=== PATIENT | female | born 1980 | race Caucasian/White ===

== ENCOUNTER 2016-12-02 18:43 | Emergency (ER) | payer OTHER ==
[~2016-12-02] VITALS: Ht 154.9 cm; Wt 96.6 kg
[~2016-12-02 18:43] MED LIST: ALBUTEROL0.5 % IN; ASPIRIN ADULT L81 M2; ASPIRIN ADULT L81 M2 PO; ATORVASTATIN CA20 MG PO; BACTRIM DS1 TAB PO; CIPROFLOXACN500 MG PO; CLEOCIN300 MG PO; CLINDAMYCIN300 M1 PO; CLOTRIMAZOLE1 % VA; CORTISPORIN OTI10 M2 AS; DOXYCYC MONO100 M2 PO; DOXYCYCL HYC100 MG PO; FLEXERIL5 MG PO; GLUCOMETER; HYDROCO/APAP1 TA9 PO; LEVEMIR FL100 UNIT/M SC; LIDOCAINE VISC20 ML EX; LISINOPRIL10 MG PO; LORAZEPAM0.5 MG PO; LOTRISONE CREAM15 G1 TOP; MEDDOSEPAK PO; METFORMIN HCL1000 MG PO; METFORMIN500 MG PO; ONDANSETRON4 MG PO; PERCOCET 10/31 COMBO PO; PERCOCET1 TA2 PO; PREDNISONE10 MG PO; PREVACID30 M2 PO; PRILOSEC40 MG PO; PROAIR HFA IN; PROZAC20 MG PO; PYRIDIUM200 MG PO; QVAR80 MCG IN; RISPERDAL1 M1 PO; RISPERIDONE0.5 MG PO; RISPERIDONE2 MG PO; SYMBICORT1 AE1 IN; TOPIRAMATE100 MG PO; ULTRAM50 M1 PO; ULTRAM50 MG PO; VANCOMYCIN HCL1 GM IV; WARFARIN SODIUM5 MG PO; WELLBUTRIN SR150 MG PO; [UNRECOGNIZED DRUG - SUPPLY]
[2016-12-02 20:06] LABS: HEMATOCRIT 52.6 % (37.0-47.0); HEMOGLOBIN 17.7 g/dl (12.0-16.0); IMMATURE GRANULOCYTES 0.4 % (0.0-1.0); MEAN CELL VOLUME 85.1 fL CALC (80.0-100.0); MEAN CORPUSCULAR HGB 28.6 pG CALC (26.0-32.0); MEAN CORPUSCULAR HGB CONC 33.7 g/L CALC (32.0-36.0); NEUT# 6.12 thou/uL (2.00-7.15); RED BLOOD COUNT 6.18 mill/uL (4.20-5.60); RED CELL DISTRI WIDTH 13.2 % (11.5-15.5)
[2016-12-02 21:41] LABS: ALBUMIN 4.2 g/dL (3.2-5.0); ALKALINE PHOSPHATASE 98 u/l (38-126); ANION GAP 16 (6-22 (CALC)); BILIRUBIN, TOTAL 0.9 mg/dL (0.0-1.4); BUN 10 mg/dL (7-17); BUN/CREATININE RATIO 21 (12-20 (CALC)); CALCIUM 9.6 mg/dL (8.4-10.2); CARBON DIOXIDE 25 mmol/l (22-30); CHLORIDE 103 mmol/l (95-108); CREATININE 0.5 mg/dL (0.5-1.0); GFR > 60 ML/MIN (>=60 (CALC)); GFR FOR AFR.AMER. > 60 ML/MIN (>=60 (CALC)); GLUCOSE 193 mg/dL (65-105); SGOT/AST 21 u/l (14-36); SGPT/ALT 35 u/l (9-52); SODIUM 140 mmol/l (137-146); TOTAL PROTEIN 7.5 g/dL (6.3-8.2)
[2016-12-02 22:30] VITALS: BP 115/72
== END 2016-12-02 22:30 | disposition home or self-care (01) | DRG 556 ==
LOC: ED 18:43
PROVIDERS: Emergency Medicine
DX: M79.601 Pain in right arm (principal); R73.9 Hyperglycemia, unspecified; Z86.718 Personal history of other venous thrombosis and embolism; Z79.01 Long term (current) use of anticoagulants

== ENCOUNTER 2016-12-21 04:15 | Inpatient (IN) | payer OTHER ==
[~2016-12-21] VITALS: Ht 154.9 cm; Wt 99.0 kg
--- NOTE | 2016-12-21 04:25 | NUR ---
RECEIVED PT VIA EMS. C/O SOB, CHEST PAIN AND ELEVATED BLOOD SUGAR. PT STATED SOB STARTED WITH LOSS OF POWER, UNABLE TO TAKE HOME NEB TX. PT RELATED CONDITION EXACERBATED WITH THE HEAT.
[2016-12-21 06:22] LABS: URINE BILIRUBIN - DIPSTICK NEGATIVE (NEGATIVE); URINE BLOOD DIPSTICK NEGATIVE (NEGATIVE); URINE CLARITY CLEAR; URINE COLOR YELLOW; URINE GLUCOSE - DIPSTICK >=1000 mg/dL (NEGATIVE); URINE KETONE NEGATIVE (NEGATIVE); URINE NITRITE - DIPSTICK NEGATIVE (Negative); URINE PROTEIN - DIPSTICK NEGATIVE (NEG-TRACE); URINE UROBILINOGEN - DIPSTICK 0.2 E.U./dL (0.2)
--- NOTE | 2016-12-21 06:24 | NUR ---
RESP AT BEDSIDE FOR RAUDEL FRIEDMAN.
--- NOTE | 2016-12-21 06:25 | NUR ---
BREATHING TREATMENT GIVEN. BREATHING TECH FOR GOOD DEPOSITION TO THE LUNGS.
[2016-12-21 06:39] LABS: HEMATOCRIT 46.1 % (37.0-47.0); HEMOGLOBIN 15.4 g/dl (12.0-16.0); IMMATURE GRANULOCYTES 0.2 % (0.0-1.0); MEAN CELL VOLUME 86.2 fL CALC (80.0-100.0); MEAN CORPUSCULAR HGB 28.8 pG CALC (26.0-32.0); MEAN CORPUSCULAR HGB CONC 33.4 g/L CALC (32.0-36.0); NEUT# 6.72 thou/uL (2.00-7.15); RED BLOOD COUNT 5.35 mill/uL (4.20-5.60)
[2016-12-21 06:46] LABS: URINE LEUK ESTERASE SMALL (NEGATIVE)
--- NOTE | 2016-12-21 06:48 | NUR ---
REPORT TO LULU GUTIERREZ
[2016-12-21 06:51] LABS: URINE BACTERIA FEW hpf; URINE SQUAMOUS EPITHELIAL CELL FEW EPI/hpf (0-FEW); URINE TRICHOMONAS FEW hpf
[2016-12-21 06:55] LABS: ACT PARTIAL THROMBO TIME 27.5 SECONDS (20.0-32.5); INTERNATIONAL NORMALIZED RATIO 0.9 RATIO (0.7-1.3); PROTHROMBIN TIME 9.6 SECONDS (9.0-12.5)
[2016-12-21 06:56] LABS: ALKALINE PHOSPHATASE 118 u/l (38-126); ANION GAP 17 (6-22 (CALC)); BILIRUBIN, TOTAL 0.5 mg/dL (0.0-1.4); BUN 11 mg/dL (7-17); BUN/CREATININE RATIO 21 (12-20 (CALC)); CARBON DIOXIDE 23 mmol/l (22-30); CHLORIDE 101 mmol/l (95-108); CREATININE 0.5 mg/dL (0.5-1.0); GFR > 60 ML/MIN (>=60 (CALC)); GFR FOR AFR.AMER. > 60 ML/MIN (>=60 (CALC)); GLUCOSE 398 mg/dL (65-105); POTASSIUM 4.9 mmol/l (3.5-5.1); SGOT/AST 18 u/l (14-36); SGPT/ALT 33 u/l (9-52); SODIUM 136 mmol/l (137-146); TOTAL PROTEIN 7.3 g/dL (6.3-8.2)
[2016-12-21 07:07] LABS: MYOGLOBIN 15 ng/mL (0 - 62)
--- NOTE | 2016-12-21 07:25 | NUR ---
SBAR PRINTED TO FLOOR
--- NOTE | 2016-12-21 07:25 | NUR ---
PATIENT RESTING ON STRETCHER, RALES AUSCULTATED ON RIGHT LOBE AND LEFT LOWER LOBE. PATIENT REPORTS PAIN RATING 10/10. MD AWARE, AWAITING ORDERS.
--- NOTE | 2016-12-21 08:20 | NUR ---
REPORT GIVEN TO MATT DHALIWAL.
--- NOTE | 2016-12-21 08:25 | NUR ---
PATIENT REPORTS PAIN 7/10 AT THIS TIME.
--- NOTE | 2016-12-21 08:30 | NUR ---
PT TO ROOM VIA STRETCHER ACCOMPANIED BY STAFF; AMBULATORY TO BED WITH STAND BY ASSIST; O2 2L VIA NC; TELE MONITOR IN PLACE; PT ORIENTED TO ROOM AND CALL SYSTEM; WILL CONTINUE TO MONITOR.
[2016-12-21 08:40] VITALS: BP 113/73
--- NOTE | 2016-12-21 08:40 | NUR ---
PATIENT TRANSPORTED TO [facility] VIA STRETCHER WITH TELE MONITOR IN PLACE.
[2016-12-21] MEDS ORDERED: METFORMIN500 MG PO (10:45)
[2016-12-21 11:15] LABS: CHOLESTEROL HDL RATIO 6.3 (<4.4 (CALC))
--- NOTE | 2016-12-21 11:15 | NUR ---
PT MEDICATED FOR C/O MIDSTERNAL CHEST PAIN AND BACK PAIN 01/18; CALL LUJAN WITHIN REACH; WILL CONTINUE TO MONITOR.
[2016-12-21 15:44] VITALS: BP 122/69
--- NOTE | 2016-12-21 16:23 | NUR ---
Initiated Chest percussions with G5 percussor times 6 mins. Non-productive cough.
--- NOTE | 2016-12-21 16:30 | NUR ---
PT VISITING WITH FAMILY; NO COMPLAINTS VOICED; CALL LUJAN WITHIN REACH; WILL CONTINUE TO MONITOR.
--- NOTE | 2016-12-21 19:00 | NUR ---
BEDSIDE REPORT RECEIVED FROM MATT DHALIWAL. PT SITTING UP IN BED. C/O MIDSTERNAL PAIN AND REQUESTS HER ANAGEISC. RESPIRATIONS EVEN AND UNLABORED ON 2L OF OXYGEN VIA NC. PLAN OF CARE DISCUSSED. PT ENCOURAGED TO VERBALIZE CONCERNS. STATES UNDERSTANDING. SAFETY MEASURES IN PLACE. CALL LIGHT WITHIN REACH.
[2016-12-21 19:20] VITALS: BP 114/68
--- NOTE | 2016-12-22 | NUR ---
PT ASLEEP AT THIS TIME. NO SIGNS OF DISTRESS NOTED. RESPIRATIONS EVEN AND UNLABORED ON 2L OF OXYGEN. UP AD TERENCE TO BATHROOM. NEW IV SITE TO RIGHT WRIST APPEARS HEALTHY. PT USES CALL LIGHT PRN. SAFETY MEASURES IN PLACE. CALL LIGHT WITHIN REACH.
[2016-12-22 00:50] VITALS: BP 103/58
[2016-12-22 04:35] VITALS: BP 93/64
--- NOTE | 2016-12-22 05:28 | NUR ---
PT ASLEEP AT THIS TIME. NO SIGNS OF DISTRESS NOTED. RESPIRATIONS EVEN AND UNLABORED. NO CHANGES IN ASSESSMENT. CONDITION IS STABLE. PT REMOVED OXYGEN DURING THE NIGHT; REAPPLIED. SAFETY MEASURES IN PLACE. CALL LIGHT WITHIN REACH.
[2016-12-22 06:05] LABS: HEMATOCRIT 43.6 % (37.0-47.0); HEMOGLOBIN 14.4 g/dl (12.0-16.0); IMMATURE GRANULOCYTES 0.5 % (0.0-1.0); MEAN CELL VOLUME 86.3 fL CALC (80.0-100.0); MEAN CORPUSCULAR HGB 28.5 pG CALC (26.0-32.0); NEUT# 8.78 thou/uL (2.00-7.15); RED BLOOD COUNT 5.05 mill/uL (4.20-5.60)
[2016-12-22 06:07] LABS: ANION GAP 17 (6-22 (CALC)); BUN 15 mg/dL (7-17); BUN/CREATININE RATIO 21 (12-20 (CALC)); CALCIUM 10.2 mg/dL (8.4-10.2); CARBON DIOXIDE 19 mmol/l (22-30); CHLORIDE 104 mmol/l (95-108); CREATININE 0.7 mg/dL (0.5-1.0); GFR > 60 ML/MIN (>=60 (CALC)); GFR FOR AFR.AMER. > 60 ML/MIN (>=60 (CALC)); GLUCOSE 447 mg/dL (65-105); MAGNESIUM 1.7 mg/dL (1.6-2.3); SODIUM 135 mmol/l (137-146)
[2016-12-22 08:29] VITALS: BP 95/44
[2016-12-22 11:18] VITALS: BP 122/79
[2016-12-22 15:47] VITALS: BP 102/57
[2016-12-22 19:38] VITALS: BP 108/63
--- NOTE | 2016-12-22 20:15 | NUR ---
PT. SITTING UP IN BED WITH NO DISTRESS NOTED. ASSESSMENT COMPLETED;PT. ON RA. PT. REPORTS SOME DECREASE IN CHEST MUSCULAR PAIN. UPDATED ON POC. ENCOURAGED TO CALL FOR ANY NEEDS. CALL LIGHT IS IN REACH.
--- NOTE | 2016-12-22 21:55 | NUR ---
NEW IV SITE STARTED TO LFA X1 ATTEMPT. REMOVED IV SITE TO LW PER PTS REQUEST, CATH TIP IS INTACT. CALL LIGHT IS IN REACH. WILL CONTINUE TO MONITOR.
--- NOTE | 2016-12-23 | NUR ---
PT. RESTING IN BED WITH EYES CLOSED, NO DISTRESS NOTED. RESP EVEN AND UNLABORED. ENCOURAGED TO CALL FOR ANY NEEDS. CALL LIGHT IS IN REACH.
[2016-12-23 00:30] VITALS: BP 110/61
--- NOTE | 2016-12-23 03:01 | NUR ---
PT. RESTING IN BED WITH EYES CLOSED, NO DISTRESS NOTED. RESP EVEN AND UNLABORED. CALL LIGHT IS IN REACH.
--- NOTE | 2016-12-23 03:03 | NUR ---
PT. IS RESTING IN BED ON RIGHT SIDE WITH EYES CLOSED; NO DISTRESS NOTED. CPAP IN PLACE. CALL LIGHT IS IN REACH.
[2016-12-23 03:40] VITALS: BP 115/68
[2016-12-23 05:08] LABS: ANION GAP 16 (6-22 (CALC)); BUN 23 mg/dL (7-17); BUN/CREATININE RATIO 37 (12-20 (CALC)); CALCIUM 10.1 mg/dL (8.4-10.2); CARBON DIOXIDE 21 mmol/l (22-30); CHLORIDE 103 mmol/l (95-108); CREATININE 0.6 mg/dL (0.5-1.0); GFR > 60 ML/MIN (>=60 (CALC)); GFR FOR AFR.AMER. > 60 ML/MIN (>=60 (CALC)); GLUCOSE 322 mg/dL (65-105); POTASSIUM 4.7 mmol/l (3.5-5.1); SODIUM 135 mmol/l (137-146)
[2016-12-23 05:23] LABS: HEMATOCRIT 42.4 % (37.0-47.0); IMMATURE GRANULOCYTES 0.7 % (0.0-1.0); MEAN CELL VOLUME 85.7 fL CALC (80.0-100.0); MEAN CORPUSCULAR HGB 28.3 pG CALC (26.0-32.0); NEUT# 11.96 thou/uL (2.00-7.15); RED BLOOD COUNT 4.95 mill/uL (4.20-5.60); RED CELL DISTRI WIDTH 13.3 % (11.5-15.5)
--- NOTE | 2016-12-23 05:30 | NUR ---
PT. SITTING UP IN BED WITH NO RESP DISTRESS NOTED. PT. C/O CHEST (MUSCULAR)PAIN 10/10, MEDICATED WITH ORDERED PRN PERCOCET, WILL REASSESS. PO FLUIDS GIVEN. ENCOURAGED TO CALL FOR ANY NEEDS. CALL LIGHT IS IN REACH.
[2016-12-23 08:00] VITALS: BP 111/65
--- NOTE | 2016-12-23 08:00 | NUR ---
PT.SITTING UPRIGHT IN BED EATING BREAKFAST, C/O LACK OF FOOD, SHE HAS SCRAMBLED EGGS, MUFFIN, JUICE AND MILK (CALLED KITCHEN FOR GRITS); PT.V/S ASSESSED, DENIES ANY DISCOMFORT AT THIS TIME
[2016-12-23 10:55] VITALS: BP 124/75
--- NOTE | 2016-12-23 11:52 | NUR ---
PT.UPRIGHT IN RECLINER, HAS BEEN THERE FOR 1 HOUR. MEDICATED ORDERED, STATES THAT SHE NEEDS TO BE DISCHARGED SOON TO GO GET HER DAUGHTER
[2016-12-23] MEDS ORDERED: METFORMIN1000 MG PO (12:05)
[2016-12-23] MEDS ORDERED: LIPITOR20 MG PO (12:05)
[2016-12-23] MEDS ORDERED: PREDNISONE10 MG PO (12:05)
[2016-12-23] MEDS ORDERED: DOXYCYCL HYC100 MG PO (12:05)
[2016-12-23] MEDS ORDERED: LORTAB 7.5-3251 TAB PO (12:06)
[2016-12-23] MEDS ORDERED: NOVOLOG100 UNIT/M SC (12:13)
--- NOTE | 2016-12-23 13:21 | NUR ---
IV REMOVED AND JEWELRY MOLD MAKER REMOVED, ED NOTIFIED, PT.DISCHARGED AND OFF THE FLOOR AT THIS TIME IN GOOD CONDITION, AMBULATED SELF WITH FAMILY PICKING HER UP DOWNSTAIRS.
== END 2016-12-23 13:20 | disposition home or self-care (01) | DRG 190 ==
LOC: ED 04:15 → ED-I 07:03 → ED 07:17 → MS2 07:18
PROVIDERS: Emergency Medicine; Nurse Practitioner Family; ADMIT Internal Medicine; ATTEND Internal Medicine
DX: J44.1 Chronic obstructive pulmonary disease with (acute) exacerbation (principal); J96.22 Acute and chronic respiratory failure with hypercapnia; J96.21 Acute and chronic respiratory failure with hypoxia; E11.22 Type 2 diabetes mellitus with diabetic chronic kidney disease; N39.0 Urinary tract infection, site not specified; Z68.41 Body mass index [BMI] 40.0-44.9, adult; E11.65 Type 2 diabetes mellitus with hyperglycemia; I12.9 Hypertensive chronic kidney disease with stage 1 through stage 4 chronic kidney disease, or unspecified chronic kidney disease; A59.00 Urogenital trichomoniasis, unspecified; N18.9 Chronic kidney disease, unspecified; E78.5 Hyperlipidemia, unspecified; F41.9 Anxiety disorder, unspecified; F43.10 Post-traumatic stress disorder, unspecified; F31.9 Bipolar disorder, unspecified; F44.81 Dissociative identity disorder; E66.01 Morbid (severe) obesity due to excess calories; E11.69 Type 2 diabetes mellitus with other specified complication; Z88.0 Allergy status to penicillin; Z86.718 Personal history of other venous thrombosis and embolism; Z79.84 Long term (current) use of oral hypoglycemic drugs; Z59.1 Inadequate housing; Z79.4 Long term (current) use of insulin; Z87.891 Personal history of nicotine dependence; Z22.322 Carrier or suspected carrier of Methicillin resistant Staphylococcus aureus
CPT/HCPCS: J1956

== ENCOUNTER 2017-08-16 19:46 | Emergency (ER) | payer OTHER ==
[~2017-08-16] VITALS: Ht 154.9 cm; Wt 87.2 kg
[~2017-08-16 19:46] MED LIST changes: +LIPITOR20 MG PO; +LORTAB 7.5-3251 TAB PO; +METFORMIN1000 MG PO; +NOVOLOG100 UNIT/M SC
[2017-08-16] MEDS ORDERED: ULTRAM50 M1 PO (20:50)
[2017-08-16] MEDS ORDERED: NAPROSYN500 MG PO (21:01)
[2017-08-16 21:11] VITALS: BP 124/66
== END 2017-08-16 21:11 | disposition home or self-care (01) | DRG 552 ==
LOC: ED 19:46
DX: S13.9XXA Sprain of joints and ligaments of unspecified parts of neck, initial encounter (principal); V47.5XXA Car driver injured in collision with fixed or stationary object in traffic accident, initial encounter

== ENCOUNTER 2017-09-15 08:53 | Emergency (ER) | payer OTHER ==
[~2017-09-15] VITALS: Ht 154.9 cm; Wt 100.0 kg
[~2017-09-15 08:53] MED LIST changes: +NAPROSYN500 MG PO
[2017-09-15 09:25] LABS: HEMATOCRIT 46.8 % (37.0-47.0); HEMOGLOBIN 15.4 g/dl (12.0-16.0); IMMATURE GRANULOCYTES 0.4 % (0.0-1.0); MEAN CELL VOLUME 85.9 fL CALC (80.0-100.0); MEAN CORPUSCULAR HGB 28.3 pG CALC (26.0-32.0); MEAN CORPUSCULAR HGB CONC 32.9 g/L CALC (32.0-36.0); NEUT# 6.07 thou/uL (2.00-7.15); RED BLOOD COUNT 5.45 mill/uL (4.20-5.60); RED CELL DISTRI WIDTH 12.7 % (11.5-15.5)
[2017-09-15 09:32] LABS: ALBUMIN 3.7 g/dL (3.2-5.0); ALKALINE PHOSPHATASE 125 u/l (38-126); ANION GAP 18 (6-22 (CALC)); BILIRUBIN, TOTAL 0.3 mg/dL (0.0-1.4); BUN 11 mg/dL (7-17); BUN/CREATININE RATIO 28 (12-20 (CALC)); CARBON DIOXIDE 25 mmol/l (22-30); CHLORIDE 100 mmol/l (95-108); CREATININE 0.4 mg/dL (0.5-1.0); GFR > 60 ML/MIN (>=60 (CALC)); GFR FOR AFR.AMER. > 60 ML/MIN (>=60 (CALC)); LIPASE 263 u/l (23-300); POTASSIUM 4.6 mmol/l (3.5-5.1); SGOT/AST 8 u/l (14-36); SGPT/ALT 27 u/l (9-52); SODIUM 138 mmol/l (137-146); TOTAL PROTEIN 7.1 g/dL (6.3-8.2)
[2017-09-15] MEDS ORDERED: HYDROCO/APAP1 TA9 PO (10:30)
[2017-09-15] MEDS ORDERED: ONDANSETRON4 MG PO (10:30)
[2017-09-15 10:39] VITALS: BP 118/59
== END 2017-09-15 10:52 | disposition home or self-care (01) | DRG 563 ==
LOC: ED 08:53
PROVIDERS: Family Medicine
DX: S39.012A Strain of muscle, fascia and tendon of lower back, initial encounter (principal); M25.551 Pain in right hip; S76.011A Strain of muscle, fascia and tendon of right hip, initial encounter; S86.911A Strain of unspecified muscle(s) and tendon(s) at lower leg level, right leg, initial encounter; M25.561 Pain in right knee; M54.5 Low back pain; V43.52XA Car driver injured in collision with other type car in traffic accident, initial encounter; Y92.414 Local residential or business street as the place of occurrence of the external cause; Y99.0 Civilian activity done for income or pay

== ENCOUNTER 2017-10-15 22:47 | Emergency (ER) | payer OTHER ==
[~2017-10-15] VITALS: Ht 154.9 cm; Wt 77.2 kg
[2017-10-15 23:49] LABS: HEMATOCRIT 48.4 % (37.0-47.0); HEMOGLOBIN 16.2 g/dl (12.0-16.0); IMMATURE GRANULOCYTES 0.3 % (0.0-1.0); MEAN CELL VOLUME 86.1 fL CALC (80.0-100.0); MEAN CORPUSCULAR HGB 28.8 pG CALC (26.0-32.0); MEAN CORPUSCULAR HGB CONC 33.5 g/L CALC (32.0-36.0); NEUT# 6.07 thou/uL (2.00-7.15); RED BLOOD COUNT 5.62 mill/uL (4.20-5.60); RED CELL DISTRI WIDTH 12.4 % (11.5-15.5)
[2017-10-15 23:50] LABS: URINE BILIRUBIN - DIPSTICK NEGATIVE (NEGATIVE); URINE BLOOD DIPSTICK NEGATIVE (NEGATIVE); URINE COLOR YELLOW; URINE GLUCOSE - DIPSTICK >=1000 mg/dL (NEGATIVE); URINE KETONE NEGATIVE (NEGATIVE); URINE LEUK ESTERASE NEGATIVE (NEGATIVE); URINE PROTEIN - DIPSTICK NEGATIVE (NEG-TRACE); URINE SPECIFIC GRAVITY <=1.005; URINE UROBILINOGEN - DIPSTICK 0.2 E.U./dL (0.2)
[2017-10-15 23:52] LABS: URINE CLARITY SL CLOUDY; URINE NITRITE - DIPSTICK POSITIVE (Negative)
[2017-10-15 23:57] LABS: BARBITURATES NEGATIVE (NEGATIVE); COCAINE NEGATIVE (NEGATIVE); METHADONE NEGATIVE (NEGATIVE); OXCYCODONE NEGATIVE (NEGATIVE); TETRAHYDROCANNABIONOL NEGATIVE (NEGATIVE); TRICYLIC ANTIDEPRESSANTS NEGATIVE (NEGATIVE); URINE BACTERIA MODERATE hpf; URINE RBC 0-2 RBC/hpf (0-5); URINE SQUAMOUS EPITHELIAL CELL MODERATE EPI/hpf (0-FEW)
[2017-10-16 00:06] LABS: ALKALINE PHOSPHATASE 124 u/l (38-126); ANION GAP 16 (6-22 (CALC)); BILIRUBIN, TOTAL 0.4 mg/dL (0.0-1.4); BUN 11 mg/dL (7-17); BUN/CREATININE RATIO 25 (12-20 (CALC)); CARBON DIOXIDE 28 mmol/l (22-30); CHLORIDE 98 mmol/l (95-108); CREATININE 0.5 mg/dL (0.5-1.0); GFR > 60 ML/MIN (>=60 (CALC)); GFR FOR AFR.AMER. > 60 ML/MIN (>=60 (CALC)); POTASSIUM 4.2 mmol/l (3.5-5.1); SGPT/ALT 22 u/l (9-52); SODIUM 138 mmol/l (137-146); TOTAL PROTEIN 7.7 g/dL (6.3-8.2)
[2017-10-16 00:12] LABS: SGOT/AST 18 u/l (14-36)
[2017-10-16 00:13] LABS: ETHYL ALCOHOL < 10 mg/dl (0-30)
--- NOTE | 2017-10-16 00:19 | NUR ---
BREATHING TREATMENT GIVEN USING MOUTH PEICE. BREATHING TECH. FOR GOOD DEPOSITION TO THE LUNGS.
[2017-10-16 00:37] LABS: TSH, 3RD GENERATION 1.76 uIU/mL (0.47 - 4.68)
[2017-10-16] MEDS ORDERED: LEVEMIR100 UNIT/M SC (02:01)
[2017-10-16] MEDS ORDERED: LOTRISONE CREAM15 GM EX (02:01)
[2017-10-16 02:31] VITALS: BP 119/84
== END 2017-10-16 02:31 | disposition home or self-care (01) ==
LOC: ED 22:47
PROVIDERS: Family Medicine
DX: E11.65 Type 2 diabetes mellitus with hyperglycemia (principal); I10 Essential (primary) hypertension; F17.210 Nicotine dependence, cigarettes, uncomplicated; L30.4 Erythema intertrigo; Z79.4 Long term (current) use of insulin; Z91.14 Patient's other noncompliance with medication regimen

== ENCOUNTER 2017-11-14 21:57 | Emergency (ER) | payer OTHER ==
[~2017-11-14] VITALS: Ht 154.9 cm; Wt 95.0 kg
[~2017-11-14 21:57] MED LIST changes: +LEVEMIR100 UNIT/M SC; +LOTRISONE CREAM15 GM EX
[2017-11-14 23:19] LABS: HEMATOCRIT 44.8 % (37.0-47.0); HEMOGLOBIN 15.3 g/dl (12.0-16.0); IMMATURE GRANULOCYTES 0.3 % (0.0-5.0); MEAN CELL VOLUME 84.1 fL CALC (80.0-100.0); MEAN CORPUSCULAR HGB 28.7 pG CALC (26.0-32.0); MEAN CORPUSCULAR HGB CONC 34.2 g/L CALC (32.0-36.0); NEUT# 8.99 thou/uL (2.00-7.15); RED BLOOD COUNT 5.33 mill/uL (4.20-5.60); RED CELL DISTRI WIDTH 12.4 % (11.5-15.5)
[2017-11-14 23:28] LABS: ALBUMIN 3.6 g/dL (3.2-5.0); ALKALINE PHOSPHATASE 122 u/l (38-126); ANION GAP 16 (6-22 (CALC)); BILIRUBIN, TOTAL 0.4 mg/dL (0.0-1.4); BUN 8 mg/dL (7-17); BUN/CREATININE RATIO 22 (12-20 (CALC)); CARBON DIOXIDE 26 mmol/l (22-30); CHLORIDE 101 mmol/l (95-108); CREATININE 0.4 mg/dL (0.5-1.0); GFR > 60 ML/MIN (>=60 (CALC)); GFR FOR AFR.AMER. > 60 ML/MIN (>=60 (CALC)); POTASSIUM 4.1 mmol/l (3.5-5.1); SGOT/AST 11 u/l (14-36); SGPT/ALT 23 u/l (9-52); SODIUM 139 mmol/l (137-146); TOTAL PROTEIN 6.7 g/dL (6.3-8.2)
[2017-11-15] MEDS ORDERED: BACTRIM DS1 TAB PO (00:43)
[2017-11-15] MEDS ORDERED: CEPHALEXIN500 M1 PO (00:43)
[2017-11-15] MEDS ORDERED: LORTAB 1010 MG PO (00:43)
[2017-11-15 03:27] VITALS: BP 115/72
== END 2017-11-15 03:27 | disposition home or self-care (01) ==
LOC: ED 21:57
PROVIDERS: Emergency Medicine
DX: N76.4 Abscess of vulva (principal); E11.9 Type 2 diabetes mellitus without complications; I10 Essential (primary) hypertension
CPT/HCPCS: J1956

== ENCOUNTER 2017-12-18 13:40 | Emergency (ER) | payer OTHER ==
[~2017-12-18] VITALS: Ht 154.9 cm; Wt 90.0 kg
[~2017-12-18 13:40] MED LIST changes: +CEPHALEXIN500 M1 PO; +LORTAB 1010 MG PO
[2017-12-18 14:12] LABS: GFR > 60 ML/MIN (>=60 (CALC)); GFR FOR AFR.AMER. > 60 ML/MIN (>=60 (CALC))
[2017-12-18 14:15] LABS: HEMATOCRIT 46.7 % (37.0-47.0); HEMOGLOBIN 15.7 g/dl (12.0-16.0); IMMATURE GRANULOCYTES 0.4 % (0.0-5.0); MEAN CELL VOLUME 85.4 fL CALC (80.0-100.0); MEAN CORPUSCULAR HGB 28.7 pG CALC (26.0-32.0); MEAN CORPUSCULAR HGB CONC 33.6 g/L CALC (32.0-36.0); NEUT# 8.51 thou/uL (2.00-7.15); RED BLOOD COUNT 5.47 mill/uL (4.20-5.60); RED CELL DISTRI WIDTH 12.3 % (11.5-15.5)
[2017-12-18 14:54] LABS: INTERNATIONAL NORMALIZED RATIO 0.9 RATIO (0.7-1.3); PROTHROMBIN TIME 10.1 SECONDS (9.0-12.5)
[2017-12-18 15:02] LABS: ANION GAP 17 (6-22 (CALC)); BUN 8 mg/dL (7-17); BUN/CREATININE RATIO 21 (12-20 (CALC)); CARBON DIOXIDE 23 mmol/l (22-30); CHLORIDE 102 mmol/l (95-108); CREATININE 0.4 mg/dL (0.5-1.0); GFR > 60 ML/MIN (>=60 (CALC)); GFR FOR AFR.AMER. > 60 ML/MIN (>=60 (CALC)); POTASSIUM 4.6 mmol/l (3.5-5.1); SODIUM 137 mmol/l (137-146)
[2017-12-18 15:28] VITALS: BP 144/73
== END 2017-12-18 15:28 | disposition short-term general hospital (02) ==
LOC: ED 13:40
PROVIDERS: Family Medicine
DX: I63.9 Cerebral infarction, unspecified (principal); E11.9 Type 2 diabetes mellitus without complications; I10 Essential (primary) hypertension; R29.703 NIHSS score 3; G81.94 Hemiplegia, unspecified affecting left nondominant side; R20.0 Anesthesia of skin; R29.810 Facial weakness
CPT/HCPCS: Q9967

== ENCOUNTER 2018-01-04 09:42 | Outpatient (RCR) | payer OTHER ==
[2017-12-25 10:00] VITALS: BP 130/86
[2017-12-26 09:43] VITALS: BP 113/79
[2017-12-27 13:42] VITALS: BP 110/72
[2017-12-28 09:32] LABS: HEMATOCRIT 45.1 % (37.0-47.0); HEMOGLOBIN 14.4 g/dl (12.0-16.0); IMMATURE GRANULOCYTES 0.3 % (0.0-5.0); MEAN CELL VOLUME 86.7 fL CALC (80.0-100.0); MEAN CORPUSCULAR HGB 27.7 pG CALC (26.0-32.0); MEAN CORPUSCULAR HGB CONC 31.9 g/L CALC (32.0-36.0); NEUT# 6.26 thou/uL (2.00-7.15); RED BLOOD COUNT 5.2 mill/uL (4.20-5.60); RED CELL DISTRI WIDTH 12.5 % (11.5-15.5)
[2017-12-28 09:58] LABS: ALBUMIN 3.5 g/dL (3.2-5.0); ALKALINE PHOSPHATASE 111 u/l (38-126); ANION GAP 14 (6-22 (CALC)); BILIRUBIN, TOTAL 0.6 mg/dL (0.0-1.4); BUN 8 mg/dL (7-17); BUN/CREATININE RATIO 24 (12-20 (CALC)); CARBON DIOXIDE 26 mmol/l (22-30); CHLORIDE 106 mmol/l (95-108); CREATININE 0.3 mg/dL (0.5-1.0); GFR > 60 ML/MIN (>=60 (CALC)); GFR FOR AFR.AMER. > 60 ML/MIN (>=60 (CALC)); POTASSIUM 4.3 mmol/l (3.5-5.1); SGPT/ALT 38 u/l (9-52); SODIUM 141 mmol/l (137-146); TOTAL PROTEIN 6.8 g/dL (6.3-8.2)
[2017-12-28 09:59] LABS: SGOT/AST 22 u/l (14-36)
[2017-12-28 10:42] VITALS: BP 107/73
[2017-12-29 13:06] VITALS: BP 109/76
[2017-12-31 10:20] VITALS: BP 109/76
[2017-12-31 11:48] VITALS: BP 109/76
[2018-01-03 11:19] VITALS: BP 114/80
[~2018-01-04] VITALS: Ht 154.9 cm; Wt 90.7 kg
--- NOTE | 2018-01-04 10:00 | NUR ---
Called Dr. Melgar's OFFICE AND SPOKE /c "[place]" VIDEO TAPE DUPLICATOR. ADVISED [place] OF Pt NON-COMPLIANCE, AND QUESTIONd ROUTE OF DIFLUCAN? PER [place] Pt WAS GIVEN Rx PRIOR TO D/C, BUT "[place]" WOUND CALL ANOTHER Rx TO [facility] FOR Pt.. Pt MADE AWARE OF INSTRUCTION /c FULL UNDERSTANDING RETURNED.
[2018-01-04 10:20] LABS: HEMOGLOBIN 14.9 g/dl (12.0-16.0); IMMATURE GRANULOCYTES 0.3 % (0.0-5.0); MEAN CELL VOLUME 85.2 fL CALC (80.0-100.0); MEAN CORPUSCULAR HGB 28.2 pG CALC (26.0-32.0); MEAN CORPUSCULAR HGB CONC 33.1 g/L CALC (32.0-36.0); NEUT# 6.1 thou/uL (2.00-7.15); RED BLOOD COUNT 5.28 mill/uL (4.20-5.60); RED CELL DISTRI WIDTH 12.2 % (11.5-15.5)
[2018-01-04 10:23] VITALS: BP 118/78
[2018-01-04 10:58] LABS: ALBUMIN 3.9 g/dL (3.2-5.0); ALKALINE PHOSPHATASE 90 u/l (38-126); ANION GAP 15 (6-22 (CALC)); BILIRUBIN, TOTAL 0.7 mg/dL (0.0-1.4); BUN 9 mg/dL (7-17); BUN/CREATININE RATIO 26 (12-20 (CALC)); CARBON DIOXIDE 27 mmol/l (22-30); CHLORIDE 103 mmol/l (95-108); CREATININE 0.4 mg/dL (0.5-1.0); GFR > 60 ML/MIN (>=60 (CALC)); GFR FOR AFR.AMER. > 60 ML/MIN (>=60 (CALC)); POTASSIUM 4.5 mmol/l (3.5-5.1); SGOT/AST 38 u/l (14-36); SGPT/ALT 40 u/l (9-52); SODIUM 141 mmol/l (137-146); TOTAL PROTEIN 7.5 g/dL (6.3-8.2)
== END 2018-01-04 10:30 | disposition home or self-care (01) ==
LOC: INF 09:42
PROVIDERS: ATTEND Internal Medicine Infectious Disease
DX: M86.9 Osteomyelitis, unspecified (principal); M79.621 Pain in right upper arm
CPT/HCPCS: J1335

== ENCOUNTER 2018-03-14 20:12 | Emergency (ER) | payer OTHER ==
[~2018-03-14] VITALS: Ht 154.9 cm; Wt 92.0 kg
[2018-03-14] MEDS ORDERED: IBUPROFEN600 MG PO (21:15)
[2018-03-14] MEDS ORDERED: BACTRIM DS1 TAB PO (21:15)
[2018-03-14] MEDS ORDERED: KEFLEX500 M1 PO (21:15)
[2018-03-14 21:25] VITALS: BP 129/74
== END 2018-03-14 21:25 | disposition home or self-care (01) ==
LOC: ED 20:12
DX: L02.415 Cutaneous abscess of right lower limb (principal)

== ENCOUNTER 2023-04-11 12:18 | Observation (INO) | payer OTHER ==
[2023-04-11] VITALS (13 sets, daily range): BP systolic 105–150; BP diastolic 63–89
[~2023-04-11] VITALS: Ht 154.9 cm; Wt 86.4 kg
[~2023-04-11 12:18] MED LIST changes: +IBUPROFEN600 MG PO; +KEFLEX500 M1 PO
[2023-04-11 12:58] LABS: BASO% 0.2 % (0-3); EOS% 0.1 % (0-8); HEMOGLOBIN 14.3 g/dl (12.0-16.0); IMMATURE GRANULOCYTES 0.2 % (0.0-5.0); LYMPH% 18.1 % (15-41); MEAN CORPUSCULAR HGB 27.3 pG CALC (26.0-32.0); MEAN CORPUSCULAR HGB CONC 31.8 g/dL CAL (32.0-36.0); MONO% 4.5 % (2-13); NEUT# 9.47 thou/uL (2.00-7.15); NEUT% 76.9 % (42-76); RED BLOOD COUNT 5.23 mill/uL (4.20-5.60)
[2023-04-11 13:11] LABS: ALBUMIN 4.2 g/dL (3.2-5.0); ALKALINE PHOSPHATASE 109 u/l (38-126); ANION GAP 13 (6-22 (CALC)); BILIRUBIN, TOTAL 0.6 mg/dL (0.02-1.3); BUN 10 mg/dL (7-17); BUN/CREATININE RATIO 22 (12-20 (CALC)); CARBON DIOXIDE 30 mmol/l (22-30); CHLORIDE 99 mmol/l (95-108); CREATININE 0.5 mg/dL (0.5-1.0); GFR FOR AFR.AMER. > 60 ML/MIN (>=60 (CALC)); GFR OTHER RACES > 60 ML/MIN (>=60 (CALC)); POTASSIUM 4.5 mmol/l (3.5-5.1); SGOT/AST 24 u/l (14-36); SODIUM 138 mmol/l (137-146); TOTAL PROTEIN 7.5 g/dL (6.3-8.2)
[2023-04-11 13:20] LABS: D-DIMER 0.17 mg/L (0.19-0.60)
[2023-04-11 13:21] LABS: PROTHROMBIN TIME 9.9 SECONDS (9.0-12.5)
[2023-04-11 14:25] LABS: URINE BILIRUBIN - DIPSTICK Negative (NEGATIVE); URINE BLOOD DIPSTICK Trace-intact (NEGATIVE); URINE GLUCOSE - DIPSTICK Negative (NEGATIVE); URINE KETONE Negative (NEGATIVE); URINE NITRITE - DIPSTICK Negative (Negative); URINE PROTEIN - DIPSTICK Negative (NEG-TRACE); URINE SPECIFIC GRAVITY 1.015; URINE UROBILINOGEN - DIPSTICK 0.2 E.U./dL (0.2)
[2023-04-11 14:33] LABS: URINE COLOR Yellow; URINE LEUK ESTERASE Small (NEGATIVE)
[2023-04-11 14:36] LABS: URINE RBC 0-2 RBC/hpf (0-5); URINE SQUAMOUS EPITHELIAL CELL MODERATE EPI/hpf (0-FEW)
[2023-04-11] MEDS ORDERED: VENTOLIN HFA108 MCG IN (16:39)
[2023-04-11] MEDS ORDERED: SPIRIVA RE2.5 MCG/AC IN (16:39)
[2023-04-11] MEDS ORDERED: NEURONTIN800 MG PO (16:40)
[2023-04-12] VITALS (7 sets, daily range): BP systolic 105–116; BP diastolic 56–70
[2023-04-12 06:25] LABS: IMMATURE GRANULOCYTES 0.3 % (0.0-5.0); LYMPH% 12.7 % (15-41); MEAN CELL VOLUME 85.3 fL CALC (80.0-100.0); MEAN CORPUSCULAR HGB 27.7 pG CALC (26.0-32.0); MEAN CORPUSCULAR HGB CONC 32.5 g/dL CAL (32.0-36.0); MONO% 2.3 % (2-13); NEUT# 7.32 thou/uL (2.00-7.15); NEUT% 84.7 % (42-76); RED BLOOD COUNT 4.69 mill/uL (4.20-5.60); RED CELL DISTRI WIDTH 13.1 % (11.5-15.5)
[2023-04-12 06:40] LABS: ALKALINE PHOSPHATASE 92 u/l (38-126); ANION GAP 12 (6-22 (CALC)); BILIRUBIN, TOTAL 0.6 mg/dL (0.02-1.3); BUN 9 mg/dL (7-17); BUN/CREATININE RATIO 23 (12-20 (CALC)); CARBON DIOXIDE 24 mmol/l (22-30); CHLORIDE 102 mmol/l (95-108); CREATININE 0.4 mg/dL (0.5-1.0); GFR FOR AFR.AMER. > 60 ML/MIN (>=60 (CALC)); GFR OTHER RACES > 60 ML/MIN (>=60 (CALC)); MAGNESIUM 1.6 mg/dL (1.6-2.3); SGOT/AST 15 u/l (14-36); SODIUM 134 mmol/l (137-146)
[2023-04-12 06:42] LABS: ALBUMIN 3.2 g/dL (3.2-5.0)
[2023-04-13 05:05] VITALS: BP 129/69
[2023-04-13 06:39] VITALS: BP 138/67
[2023-04-13 06:53] LABS: HEMATOCRIT 38.7 % (37.0-47.0); HEMOGLOBIN 12.6 g/dl (12.0-16.0); IMMATURE GRANULOCYTES 0.5 % (0.0-5.0); LYMPH% 11.5 % (15-41); MEAN CELL VOLUME 86.8 fL CALC (80.0-100.0); MEAN CORPUSCULAR HGB 28.3 pG CALC (26.0-32.0); MEAN CORPUSCULAR HGB CONC 32.6 g/dL CAL (32.0-36.0); MONO% 3.7 % (2-13); NEUT# 9.24 thou/uL (2.00-7.15); NEUT% 84.3 % (42-76); RED BLOOD COUNT 4.46 mill/uL (4.20-5.60); RED CELL DISTRI WIDTH 13.5 % (11.5-15.5)
[2023-04-13 07:13] LABS: ALBUMIN 3.2 g/dL (3.2-5.0); ALKALINE PHOSPHATASE 76 u/l (38-126); ANION GAP 15 (6-22 (CALC)); BILIRUBIN, TOTAL 0.5 mg/dL (0.02-1.3); BUN 15 mg/dL (7-17); BUN/CREATININE RATIO 32 (12-20 (CALC)); CARBON DIOXIDE 22 mmol/l (22-30); CHLORIDE 104 mmol/l (95-108); CREATININE 0.5 mg/dL (0.5-1.0); GFR FOR AFR.AMER. > 60 ML/MIN (>=60 (CALC)); GFR OTHER RACES > 60 ML/MIN (>=60 (CALC)); MAGNESIUM 1.8 mg/dL (1.6-2.3); POTASSIUM 4.3 mmol/l (3.5-5.1); SGOT/AST 25 u/l (14-36); SODIUM 136 mmol/l (137-146)
[2023-04-13 11:13] VITALS: BP 129/65
[2023-04-13] MEDS ORDERED: LEVEMIR100 UNIT SC (13:48)
[2023-04-13] MEDS ORDERED: LISINOPRIL5 MG PO (13:49)
[2023-04-13] MEDS ORDERED: GUAIFENESI100 MG/51 PO (14:05)
[2023-04-13] MEDS ORDERED: PREDNISONE10 MG PO (14:07)
[2023-04-13] MEDS ORDERED: LEVOFLOXACIN500MG PO (14:07)
== END 2023-04-13 15:42 | disposition home or self-care (01) ==
LOC: ED 12:18 → MS2 15:52
PROVIDERS: Emergency Medicine; ADMIT Student in an Organized Health Care Education/Training Program; ATTEND Student in an Organized Health Care Education/Training Program
DX: J44.1 Chronic obstructive pulmonary disease with (acute) exacerbation (principal); N39.0 Urinary tract infection, site not specified; B96.89 Other specified bacterial agents as the cause of diseases classified elsewhere; J96.22 Acute and chronic respiratory failure with hypercapnia; J96.21 Acute and chronic respiratory failure with hypoxia; I12.9 Hypertensive chronic kidney disease with stage 1 through stage 4 chronic kidney disease, or unspecified chronic kidney disease; E11.22 Type 2 diabetes mellitus with diabetic chronic kidney disease; N18.9 Chronic kidney disease, unspecified; E11.69 Type 2 diabetes mellitus with other specified complication; E78.5 Hyperlipidemia, unspecified; K58.9 Irritable bowel syndrome, unspecified; F31.9 Bipolar disorder, unspecified; E66.01 Morbid (severe) obesity due to excess calories; Z87.891 Personal history of nicotine dependence; Z22.322 Carrier or suspected carrier of Methicillin resistant Staphylococcus aureus; Z79.4 Long term (current) use of insulin; Z20.822 Contact with and (suspected) exposure to COVID-19
CPT/HCPCS: G0378; J1650; Q9967

== ENCOUNTER 2023-05-14 03:51 | Emergency (ER) | payer OTHER ==
[~2023-05-14] VITALS: Ht 154.9 cm; Wt 84.0 kg
[~2023-05-14 03:51] MED LIST changes: +COZAAR25 MG PO; +DOXYCYCLINE HY100 MG PO; +GUAIFENESI100 MG/51 PO; +LEVEMIR100 UNIT SC; +LEVOFLOXACIN500MG PO; +LISINOPRIL5 MG PO; +NEURONTIN800 MG PO; +PERCOCET 5/325M1 TAB PO; +SPIRIVA RE2.5 MCG/AC IN; +VENTOLIN HFA108 MCG IN
[2023-05-14] MEDS ORDERED: VOLTAREN - GENE75 MG PO (05:27)
[2023-05-14 05:40] VITALS: BP 122/70
[2023-05-14 05:45] VITALS: BP 124/77
[2023-05-14 06:00] VITALS: BP 105/72
[2023-05-14 08:41] VITALS: BP 105/72
== END 2023-05-14 08:41 | disposition home or self-care (01) ==
LOC: ED 03:51
DX: S29.011A Strain of muscle and tendon of front wall of thorax, initial encounter (principal); S46.911A Strain of unspecified muscle, fascia and tendon at shoulder and upper arm level, right arm, initial encounter; S80.12XA Contusion of left lower leg, initial encounter; S80.812A Abrasion, left lower leg, initial encounter; I12.9 Hypertensive chronic kidney disease with stage 1 through stage 4 chronic kidney disease, or unspecified chronic kidney disease; E11.22 Type 2 diabetes mellitus with diabetic chronic kidney disease; N18.9 Chronic kidney disease, unspecified; J44.9 Chronic obstructive pulmonary disease, unspecified; E66.01 Morbid (severe) obesity due to excess calories; W19.XXXA Unspecified fall, initial encounter; X50.0XXA Overexertion from strenuous movement or load, initial encounter; Z79.4 Long term (current) use of insulin

== ENCOUNTER 2023-05-14 20:24 | Emergency (ER) | payer OTHER ==
[~2023-05-14] VITALS: Ht 154.9 cm; Wt 84.3 kg
[~2023-05-14 20:24] MED LIST changes: +VOLTAREN - GENE75 MG PO
[2023-05-14 20:45] VITALS: BP 157/84
[2023-05-14 21:00] VITALS: BP 124/65
[2023-05-14 23:00] VITALS: BP 157/84
== END 2023-05-14 23:00 | disposition home or self-care (01) ==
LOC: ED 20:24
DX: S09.90XA Unspecified injury of head, initial encounter (principal); I12.9 Hypertensive chronic kidney disease with stage 1 through stage 4 chronic kidney disease, or unspecified chronic kidney disease; E11.22 Type 2 diabetes mellitus with diabetic chronic kidney disease; N18.9 Chronic kidney disease, unspecified; J44.9 Chronic obstructive pulmonary disease, unspecified; F17.210 Nicotine dependence, cigarettes, uncomplicated; W00.0XXA Fall on same level due to ice and snow, initial encounter; Z79.4 Long term (current) use of insulin

== ENCOUNTER 2023-06-05 23:54 | Emergency (ER) | payer OTHER ==
[~2023-06-05] VITALS: Ht 154.9 cm; Wt 80.4 kg
[~2023-06-05 23:54] MED LIST changes: +ALPRAZOLAM0.5 M2 PO; +LOPRESSOR25 MG PO; +LOSARTAN POTASS25 MG PO; +PERCOCET 5/321 COMBO PO
[2023-06-06] MEDS ORDERED: XANAX0.5 MG PO (01:40)
[2023-06-06] MEDS ORDERED: ALPRAZolam 1 MG/TAB PO ONE (01:45)
[2023-06-06 02:05] VITALS: BP 138/86
== END 2023-06-06 02:05 | disposition home or self-care (01) ==
LOC: ED 23:54
DX: F41.9 Anxiety disorder, unspecified (principal); I12.9 Hypertensive chronic kidney disease with stage 1 through stage 4 chronic kidney disease, or unspecified chronic kidney disease; E11.22 Type 2 diabetes mellitus with diabetic chronic kidney disease; N18.9 Chronic kidney disease, unspecified; J44.9 Chronic obstructive pulmonary disease, unspecified; E11.40 Type 2 diabetes mellitus with diabetic neuropathy, unspecified; E66.9 Obesity, unspecified; Z87.891 Personal history of nicotine dependence; Z79.4 Long term (current) use of insulin

== ENCOUNTER 2024-06-07 08:29 | Day surgery (SDC) | payer OTHER ==
[~2024-06-07] VITALS: Ht 154.9 cm; Wt 73.0 kg
[~2024-06-07 08:29] MED LIST changes: +AMITRIPTYLINE H50 MG PO; +XANAX0.5 MG PO
[2024-06-07] MEDS ORDERED: FAMOTIDINE 10MG/ML 2ML SDV IV ONE (08:34)
[2024-06-07] MEDS ORDERED: SODIUM CHLORIDE 0.9% 1,000 ML IV ONE (08:35)
[2024-06-07 10:30] VITALS: BP 110/58
[2024-06-07] MEDS ORDERED: LIDOCAINE HCL 2% 2ML SDV IV ONE (11:20)
[2024-06-07] MEDS ORDERED: PROPOFOL 200 MG/20 ML VIAL IV ONE (11:20)
== END 2024-06-07 10:54 | disposition home or self-care (01) ==
LOC: ORM 08:29
PROVIDERS: ATTEND Surgery
DX: Z12.11 Encounter for screening for malignant neoplasm of colon (principal); D21.4 Benign neoplasm of connective and other soft tissue of abdomen; K64.8 Other hemorrhoids; R13.10 Dysphagia, unspecified; K21.9 Gastro-esophageal reflux disease without esophagitis; I12.9 Hypertensive chronic kidney disease with stage 1 through stage 4 chronic kidney disease, or unspecified chronic kidney disease; E11.22 Type 2 diabetes mellitus with diabetic chronic kidney disease; N18.9 Chronic kidney disease, unspecified; E78.5 Hyperlipidemia, unspecified; J44.9 Chronic obstructive pulmonary disease, unspecified; F31.9 Bipolar disorder, unspecified; F17.200 Nicotine dependence, unspecified, uncomplicated; Z86.718 Personal history of other venous thrombosis and embolism; Z79.4 Long term (current) use of insulin